=== PATIENT | female | born 1965 | race Caucasian/White ===

== ENCOUNTER 2022-01-17 04:16 | Day surgery (SDC) | payer BC, OTHER ==
[2022-01-13 14:59] VITALS: BMI 31.2
[2022-01-17] MEDS ORDERED: MIDAZOLAM HCL 2 MG/2 ML SINGLE DOSE VIAL ONE (07:42)
[2022-01-17] MEDS ORDERED: DEXAMETHASONE SOD PHOSPHATE 4 MG/1 ML VIAL ONE (07:43)
[2022-01-17] MEDS ORDERED: KETOROLAC TROMETHAMINE 30 MG/1 ML VIAL ONE (07:43)
[2022-01-17] MEDS ORDERED: ceFAZolin SODIUM 1 GM VIAL ONE (07:43)
[2022-01-17] MEDS ORDERED: oxyCODONE HCL 5 MG TABLET PO PRN (07:44)
[2022-01-17] MEDS ORDERED: IBUPROFEN 600 MG TABLET (FP) PO PRN (07:44)
[2022-01-17] MEDS ORDERED: ONDANSETRON 4 MG/2 ML VIAL IVPUSH PRN (07:44)
[2022-01-17] MEDS ORDERED: PROPOFOL 20 ML ONE ×2 (07:44)
[2022-01-17] MEDS ORDERED: SUCCINYLCHOLINE CHLORIDE 200 MG/10 ML SYRINGE ONE (07:44)
[2022-01-17] MEDS ORDERED: IBUPROFEN 800 MG/8 ML IJ IVPB PRN (07:44)
[2022-01-17] MEDS ORDERED: ELECTROLYTE-148 SOLN 1,000 ML IV SCH (07:45)
[2022-01-17] MEDS ORDERED: LACTATED RINGERS SOLUTION 1,000 ML IV SCH (08:30)
[2022-01-17 11:21] VITALS: BP 122/78; PULSE 61; RESP 20; TEMP 97.2
== END 2022-01-17 11:15 | disposition home or self-care (01) ==
LOC: JASU-SURG 04:16
PROVIDERS: ATTEND Obstetrics & Gynecology
PROC: 0UDB7ZX Extraction of Endometrium, Via Natural or Artificial Opening, Diagnostic (ICD-10-PCS; 2022-01-17)
PROC: 0UB98ZX Excision of Uterus, Via Natural or Artificial Opening Endoscopic, Diagnostic (ICD-10-PCS; principal; 2022-01-17 07:30)
DX: N84.0 Polyp of corpus uteri (principal)
CPT/HCPCS: 88305-TC; 94760